=== PATIENT | female | born 1965 | race Hispanic/Latino ===

== ENCOUNTER 2022-06-12 11:05 | Emergency (ER) | payer OTHER ==
[~2022-06-12] VITALS: Ht 152.4 cm; Wt 73.9 kg
[2022-06-12] MEDS ORDERED: MECLIZINE HCL 25 MG TABLET PO ONE (11:30)
[2022-06-12] MEDS ORDERED: 0.9% NACL 500ML IV.SOLN 500 ML IV ONE (11:30)
[2022-06-12 12:19] LABS: BASOPHILS % (AUTO) 0.4 % (0.0-5.0); EOSINOPHILS % (AUTO) 1.3 % (0.0-8.0); HEMATOCRIT 41.6 % (36-48); LYMPHOCYTES % (AUTO) 27.1 % (21.0-51.0); MEAN CORPUSCULAR HEMOGLOBIN 28.7 pg (27.0-33.0); MEAN CORPUSCULAR HGB CONC 34.1 g/dL (32.0-36.0); MEAN CORPUSCULAR VOLUME 84.2 fL (79-99); MONOCYTES % (AUTO) 6.8 % (3.0-13.0); PLATELET COUNT (AUTO) 318 K/uL (130-400); RED BLOOD CELL COUNT(AUTO) 4.94 MIL/uL (4.00-5.50); RED CELL DISTRIBUTION WIDTH 12.2 % (11.0-15.5); WHITE BLOOD COUNT (AUTO) 8.2 K/uL (4.8-10.8)
[2022-06-12 12:32] LABS: CREATININE 0.6 mg/dL (0.5-1.5); POTASSIUM 3.5 mmol/L (3.5-5.1)
[2022-06-12 12:36] LABS: ALBUMIN 4.1 g/dL (3.5-5.0); TOTAL PROTEIN, SERUM 7.7 g/dL (6.0-8.3)
[2022-06-12] MEDS ORDERED: IBUPROFEN 600 MG TABLET ONE (12:40)
[2022-06-12 12:59] LABS: APPEARANCE,URINE SL CLOUDY (CLEAR); BILIRUBIN,URINE NEGATIVE (NEGATIVE); COLOR,URINE YELLOW (YELLOW); GLUCOSE, URINE (UA) NEGATIVE (NEGATIVE); KETONES,URINE NEGATIVE (NEGATIVE); LEUKOCYTE ESTERASE ,URINE TRACE Leu/uL (NEGATIVE); NITRATE,URINE NEGATIVE (NEGATIVE); OCCULT BLOOD,URINE NEGATIVE (NEGATIVE); PROTEIN,URINE NEGATIVE (NEGATIVE); UROBILINOGEN,URINE 0.2 mg/dL (0.2-1.0)
[2022-06-12] MEDS ORDERED: IBUPROFEN 600 MG TABLET PO ONE (13:00)
[2022-06-12 13:45] LABS: RBC,URINE 0-1 /HPF (0-1); WBC,URINE 0-1 /HPF (0-1)
[2022-06-12 13:46] LABS: BACTERIA,URINE Rare /HPF (None Seen); SQUAMOUS EPITHELIAL CELL,UR Few /HPF (0-2)
[2022-06-12] MEDS ORDERED: MECL-226 PO (14:01)
[2022-06-12] MEDS ORDERED: NAPR500T6 PO (14:01)
[2022-06-12 14:38] VITALS: BP 160/71
== END 2022-06-12 14:39 | disposition home or self-care (01) ==
LOC: EDH 11:05
DX: H81.10 Benign paroxysmal vertigo, unspecified ear (principal); R51.9 Headache, unspecified; Z20.822 Contact with and (suspected) exposure to COVID-19
CPT/HCPCS: 99285; 96360; 71045; 87635; 84484; 80053; 85025; 87804 ×2; 81001; 36415; 93005; C9803; J7040

== ENCOUNTER 2023-04-08 06:56 | Emergency (ER) | payer MEDICAID, OTHER ==
[~2023-04-08] VITALS: Ht 149.9 cm; Wt 74.8 kg
[~2023-04-08 06:56] MED LIST: MECL-226 PO; NAPR500T6 PO
[2023-04-08 07:41] LABS: BASOPHILS # (AUTO) 0.03 K/uL (0.00-0.20); BASOPHILS % (AUTO) 0.4 % (0.0-5.0); EOSINOPHILS % (AUTO) 1.2 % (0.0-8.0); HEMATOCRIT 38.7 % (36-48); IMMATURE GRANULOCYTE ABSOLUTE 0.02 K/uL (0-1); LYMPHOCYTES # (AUTO) 1.8 K/uL (1.0-4.8); LYMPHOCYTES % (AUTO) 22.3 % (21.0-51.0); MEAN CORPUSCULAR HEMOGLOBIN 28.6 pg (27.0-33.0); MEAN CORPUSCULAR HGB CONC 33.3 g/dL (32.0-36.0); MEAN CORPUSCULAR VOLUME 85.8 fL (79-99); MONOCYTES # (AUTO) 0.6 K/uL (0.1-1.0); NEUTROPHILS # (AUTO) 5.5 K/uL (1.8-7.7); NEUTROPHILS % (AUTO) 67.9 % (40.0-77.0); PLATELET COUNT (AUTO) 312 K/uL (130-400); RED BLOOD CELL COUNT(AUTO) 4.51 MIL/uL (4.00-5.50); RED CELL DISTRIBUTION WIDTH 11.9 % (11.0-15.5)
[2023-04-08 07:52] LABS: ADD UA MICROSCOPIC YES
[2023-04-08 07:53] LABS: APPEARANCE,URINE CLEAR (CLEAR); BILIRUBIN,URINE NEGATIVE (NEGATIVE); COLOR,URINE COLORLESS (YELLOW); GLUCOSE, URINE (UA) 500 mg/dL (NEGATIVE); KETONES,URINE NEGATIVE (NEGATIVE); LEUKOCYTE ESTERASE ,URINE NEGATIVE Leu/uL (NEGATIVE); NITRATE,URINE NEGATIVE (NEGATIVE); OCCULT BLOOD,URINE NEGATIVE (NEGATIVE); PROTEIN,URINE NEGATIVE (NEGATIVE); SQUAMOUS EPITHELIAL CELL,UR RARE /HPF (0-2); UROBILINOGEN,URINE 0.2 mg/dL (0.2-1.0); WBC,URINE 0-1 /HPF (0-1)
[2023-04-08 07:57] LABS: ALBUMIN 3.7 g/dL (3.5-5.0); BILIRUBIN,TOTAL 0.5 mg/dL (0.2-1.0); CREATININE 0.6 mg/dL (0.5-1.5); POTASSIUM 3.9 mmol/L (3.5-5.1); TOTAL PROTEIN, SERUM 7.6 g/dL (6.0-8.3)
[2023-04-08] MEDS ORDERED: MORPHINE 4 MG SYG IVP ONE (08:00)
[2023-04-08] MEDS ORDERED: POLY17PO4 PO (09:26)
[2023-04-08] MEDS ORDERED: METF-444 PO (09:26)
[2023-04-08] MEDS ORDERED: HYOS-14 PO (09:26)
[2023-04-08 09:55] VITALS: BP 171/72; PULSE 78; RESP 16; O2SAT 99
== END 2023-04-08 10:01 | disposition home or self-care (01) ==
LOC: EDH 06:56
DX: R10.32 Left lower quadrant pain (principal); K59.00 Constipation, unspecified; K57.30 Diverticulosis of large intestine without perforation or abscess without bleeding; E11.65 Type 2 diabetes mellitus with hyperglycemia; I10 Essential (primary) hypertension; Z79.899 Other long term (current) drug therapy; Z98.890 Other specified postprocedural states
CPT/HCPCS: 99285; 74176; 96374; 80053; 83690; 85025; 81001; 36415; J2270

== ENCOUNTER 2024-01-12 10:50 | Emergency (ER) | payer MEDICAID, OTHER ==
[~2024-01-12 10:50] MED LIST changes: +HYOS-14 PO; +METF-444 PO; +POLY17PO4 PO
[2024-01-12 11:23] LABS: BASOPHILS # (AUTO) 0.04 K/uL (0.00-0.20); BASOPHILS % (AUTO) 0.4 % (0.0-5.0); EOSINOPHILS # (AUTO) 0.09 K/uL (0.00-0.70); EOSINOPHILS % (AUTO) 0.9 % (0.0-8.0); HEMATOCRIT 40.3 % (36-48); IMMATURE GRANULOCYTE ABSOLUTE 0.04 K/uL (0-1); LYMPHOCYTES # (AUTO) 2.5 K/uL (1.0-4.8); LYMPHOCYTES % (AUTO) 25.9 % (21.0-51.0); MEAN CORPUSCULAR HEMOGLOBIN 29.4 pg (27.0-33.0); MEAN CORPUSCULAR HGB CONC 33.3 g/dL (32.0-36.0); MEAN CORPUSCULAR VOLUME 88.4 fL (79-99); MONOCYTES # (AUTO) 0.8 K/uL (0.1-1.0); NEUTROPHILS # (AUTO) 6.2 K/uL (1.8-7.7); NEUTROPHILS % (AUTO) 64.4 % (40.0-77.0); PLATELET COUNT (AUTO) 350 K/uL (130-400); RED BLOOD CELL COUNT(AUTO) 4.56 MIL/uL (4.00-5.50); RED CELL DISTRIBUTION WIDTH 12.4 % (11.0-15.5); WHITE BLOOD COUNT (AUTO) 9.7 K/uL (4.8-10.8)
[2024-01-12 11:31] LABS: ADD UA MICROSCOPIC YES; APPEARANCE,URINE HAZY (CLEAR); BILIRUBIN,URINE NEGATIVE (NEGATIVE); COLOR,URINE YELLOW (YELLOW); GLUCOSE, URINE (UA) >=1000 mg/dL (NEGATIVE); KETONES,URINE 10 mg/dL (NEGATIVE); LEUKOCYTE ESTERASE ,URINE 25 Leu/uL (NEGATIVE); NITRATE,URINE NEGATIVE (NEGATIVE); OCCULT BLOOD,URINE NEGATIVE (NEGATIVE); PH,URINE 5.5 (5.0-8.0); PROTEIN,URINE 20 mg/dL (NEGATIVE); UROBILINOGEN,URINE 0.2 mg/dL (0.2-1.0)
[2024-01-12 11:32] LABS: BACTERIA,URINE FEW /HPF (None Seen); MUCUS,URINE RARE LPF (None Seen); SQUAMOUS EPITHELIAL CELL,UR MANY /HPF (0-2)
[2024-01-12 11:38] LABS: POTASSIUM 3.6 mmol/L (3.5-5.1)
[2024-01-12 11:42] LABS: ALBUMIN 4.1 g/dL (3.5-5.0); BILIRUBIN,TOTAL 0.4 mg/dL (0.2-1.0); TOTAL PROTEIN, SERUM 8.3 g/dL (6.0-8.3)
[2024-01-12] MEDS: KETOROLAC 15MG/ML VIAL (15MG/ML) IV ONE (12:59)
[2024-01-12] MEDS: 0.9%NACL 1000ML 1,000 ML IV ONE (14:45)
[2024-01-12] MEDS: INSULIN HUMULIN R 100 UNIT/ML 3ML ONE (14:46)
[2024-01-12] MEDS: INSULIN HUMULIN R 100 UNIT/ML 3ML IV ONE (14:46)
[2024-01-12] MEDS ORDERED: IOHEXOL-350 75 ML VIAL IV ONE (14:58)
[2024-01-12 18:13] VITALS: BP 142/58; PULSE 72; RESP 16; O2SAT 100
[2024-01-12] MEDS ORDERED: GABA-529 PO (19:01)
[2024-01-12] MEDS ORDERED: HYDR-4060 PO (19:01)
== END 2024-01-12 19:13 | disposition home or self-care (01) ==
LOC: EDH 10:50
DX: R10.11 Right upper quadrant pain (principal); E11.40 Type 2 diabetes mellitus with diabetic neuropathy, unspecified; I10 Essential (primary) hypertension; Z79.84 Long term (current) use of oral hypoglycemic drugs; Z79.899 Other long term (current) drug therapy; Z98.890 Other specified postprocedural states
CPT/HCPCS: 99285; 74177; 96374; 76705; 96361; 96375; 80053; 83690; 85025; 81001; 36415; J1815; J7030; J1885; Q9967